=== PATIENT | female | born 1965 | race Caucasian/White ===

== ENCOUNTER 2019-09-28 15:08 | Outpatient (CLI) | payer OTHER ==
--- NOTE | 2019-09-28 16:04 | RAD ---
XR Knee Rt 2 View HISTORY: Disability exam, right knee pain FINDINGS: Degenerative changes are present. No joint effusion is seen. No fracture or dislocation is identified .
--- NOTE | 2019-09-28 16:04 | RAD ---
XR Forearm Rt 2 View STANDARD HISTORY: Disability exam, right forearm pain FINDINGS: The right radius and ulna are intact.
--- NOTE | 2019-09-28 16:28 | RAD ---
XR Cerv Sp Ap Lat STANDARD History: Disability exam Comparison: None. Findings: The lateral radiograph does not well demonstrate the C7 vertebra, although on the frontal r adiograph C7 appears normal. Mild narrowing of the C4-5 and moderate narrowing of the C5-6 disc space with bridging anterior osteo phytes. No fracture or malalignment of the upper cervical vertebra. Open-mouth odontoid view was not performe d. Mild narrowing of the atlantodental interval. Impression: Moderate spondylosis lower cervical spine with incomplete evaluation of C7.
== END 2019-09-28 15:09 | disposition home or self-care (01) ==
LOC: BICRAD 15:08
PROVIDERS: ATTEND Internal Medicine
DX: Z02.71 Encounter for disability determination (principal); M47.812 Spondylosis without myelopathy or radiculopathy, cervical region
CPT/HCPCS: 72040